=== PATIENT | female | born 1955 | race Caucasian/White ===

== ENCOUNTER → 2021-06-17 | Outpatient (CLI) | payer MEDICARE, OTHER | LOC: RAD 11:35 | DX: K75.81 Nonalcoholic steatohepatitis (NASH) (principal); K70.31 Alcoholic cirrhosis of liver with ascites ==

== ENCOUNTER → 2021-08-12 | Outpatient (CLI) | payer MEDICARE, OTHER ==
[2021-08-13 17:55] LABS: GRAM STAIN AMS
== END ==
LOC: RAD 13:00
DX: K75.81 Nonalcoholic steatohepatitis (NASH) (principal); K74.60 Unspecified cirrhosis of liver; K72.90 Hepatic failure, unspecified without coma; I85.00 Esophageal varices without bleeding; E11.22 Type 2 diabetes mellitus with diabetic chronic kidney disease; I12.9 Hypertensive chronic kidney disease with stage 1 through stage 4 chronic kidney disease, or unspecified chronic kidney disease; N18.6 End stage renal disease; C50.919 Malignant neoplasm of unspecified site of unspecified female breast; G47.33 Obstructive sleep apnea (adult) (pediatric); G93.40 Encephalopathy, unspecified; Z99.2 Dependence on renal dialysis
CPT/HCPCS: 19804; C1729